=== PATIENT | female | born 1995 | race Caucasian/White ===

== ENCOUNTER → 2017-05-02 11:47 | Outpatient (CLI) | payer OTHER, MEDICAID, SELFPAY ==
[2017-05-02 12:25] LABS: Albumin, Serum 3.1 g/dL (3.2-5.0); BUN 24 mg/dL (7-18); BUN/Creat Ratio 15.2 RATIO (10-20); Calcium,Total 8.9 mg/dL (8.5-10.1); Chloride 114 mmol/L (98-107); Creatinine, Serum 1.58 mg/dL (0.55-1.02); EST Glomerular Filtration Rate 43 mL/min (>60); Est Glom Filt Rate - Afr Amer 53 mL/min (>60); Glucose 79 mg/dL (74-106); Phosphorus 2.4 mg/dL (2.5-4.9); Potassium 4.9 mmol/L (3.5-5.1); Sodium Level 142 mmol/L (136-145)
== END ==
PROVIDERS: Family Provider Family Medicine; PCP Family Medicine; Visit Provider Internal Medicine Nephrology
DX: N28.9 Disorder of kidney and ureter, unspecified (principal)
CPT/HCPCS: 36415; 80069

== ENCOUNTER → 2017-06-03 15:59 | Outpatient (CLI) | payer OTHER, MEDICAID, SELFPAY ==
[2017-06-03 18:08] LABS: Microalbumin:Creatinine Ratio 296.2 mg/g CRE (<30 mg/g CRE); Protein, Urine (Random) 56.5 mg/dL (<11.9); Protein:Creat Ratio 431 mg/g CRE (0-200)
== END ==
PROVIDERS: Family Provider Family Medicine; PCP Family Medicine; Visit Provider Pediatrics Pediatric Nephrology
DX: N18.3 Chronic kidney disease, stage 3 (moderate) (principal)
CPT/HCPCS: 82043; 82570; 84156

== ENCOUNTER → 2017-06-17 10:36 | Outpatient (CLI) | payer OTHER, MEDICAID, SELFPAY ==
[2017-06-17 12:40] LABS: Anion Gap 6 (5-15); BUN 21 mg/dL (7-18); BUN/Creat Ratio 13.8 RATIO (10-20); Calcium,Total 8.9 mg/dL (8.5-10.1); Chloride 111 mmol/L (98-107); Creatinine, Serum 1.52 mg/dL (0.55-1.02); EST Glomerular Filtration Rate 45 mL/min (>60); Est Glom Filt Rate - Afr Amer 55 mL/min (>60); Glucose 63 mg/dL (74-106); Potassium 4.1 mmol/L (3.5-5.1); Sodium Level 143 mmol/L (136-145)
[2017-06-17 12:43] LABS: Absolute Lymphocyte Count 1.83 X10^3/ul (0.83-4.51); Absolute Neutrophil Count 6.6 X10^3/uL (2.0-7.7); Basophil# 0.01 X10^3/uL; Basophil% 0.1 % (0-1); Eosinophil# 0.13 X10^3/uL; Eosinophils% 1.4 % (0-5); Hematocrit 37.3 % (37-47); Hemoglobin 12.5 g/dl (12.0-15.0); Lymphocyte # 1.83 X10^3/ul (4.0); Lymphocyte % 19.7 % (19-41); Mean Corp Hgb Conc 33.5 g/gl (32-36); Mean Corpuscular Hgb 33.3 pg (27.0-32.0); Mean Corpuscular Volume 99.5 fL (81-99); Mean Platelet Vol. 11.8 fl (6.2-12.0); Monocyte# 0.69 X10^3/uL; Monocyte% 7.4 % (0-10); Neutrophil # 6.63 X10^3/uL (2.7-7.7); Neutrophil % 71.3 % (47-70); Platelet Count 225 K/mm3 (150-450); RBC Distribution Width CV 12.3 % (11.6-14.6); RBC Distribution Width SD 43.6 fl (35.1-43.9); Red Blood Count 3.75 M/mm3 (4.2-5.4); White Blood Count 9.3 K/mm3 (4.4-11.0)
[2017-06-17 12:55] LABS: POSITIVE COUNT NO; POSITIVE DIFFERENTIAL NO; POSITIVE MORPHOLOGY NO
== END ==
PROVIDERS: PCP Family Medicine; Visit Provider Family Medicine
DX: I95.9 Hypotension, unspecified (principal)
CPT/HCPCS: 36415; 80048; 85025

== ENCOUNTER → 2017-08-04 15:40 | Outpatient (CLI) | payer OTHER, MEDICAID, SELFPAY ==
[2017-08-04 17:12] LABS: Absolute Lymphocyte Count 2.04 X10^3/ul (0.83-4.51); Absolute Neutrophil Count 4.1 X10^3/uL (2.0-7.7); Basophil# 0.01 X10^3/uL; Basophil% 0.1 % (0-1); Eosinophil# 0.14 X10^3/uL; Eosinophils% 2.1 % (0-5); Hematocrit 36.6 % (37-47); Hemoglobin 12.1 g/dl (12.0-15.0); Lymphocyte # 2.04 X10^3/ul (4.0); Lymphocyte % 30.4 % (19-41); Mean Corp Hgb Conc 33.1 g/gl (32-36); Mean Corpuscular Hgb 32.5 pg (27.0-32.0); Mean Corpuscular Volume 98.4 fL (81-99); Mean Platelet Vol. 11.4 fl (6.2-12.0); Monocyte# 0.41 X10^3/uL; Monocyte% 6.1 % (0-10); Neutrophil # 4.11 X10^3/uL (2.7-7.7); Neutrophil % 61.3 % (47-70); Platelet Count 194 K/mm3 (150-450); RBC Distribution Width CV 12.2 % (11.6-14.6); RBC Distribution Width SD 43.7 fl (35.1-43.9); Red Blood Count 3.72 M/mm3 (4.2-5.4); White Blood Count 6.7 K/mm3 (4.4-11.0)
[2017-08-04 17:14] LABS: POSITIVE COUNT NO; POSITIVE DIFFERENTIAL NO; POSITIVE MORPHOLOGY NO
[2017-08-04 17:53] LABS: Albumin, Serum 3.3 g/dL (3.2-5.0); BUN 20 mg/dL (7-18); BUN/Creat Ratio 13.3 RATIO (10-20); Calcium,Total 8.8 mg/dL (8.5-10.1); Chloride 109 mmol/L (98-107); Cholesterol 116 mg/dL (200); EST Glomerular Filtration Rate 46 mL/min (>60); Est Glom Filt Rate - Afr Amer 56 mL/min (>60); Glucose 64 mg/dL (74-106); High Density Lipoprotein 37 mg/dL; Phosphorus 2.1 mg/dL (2.5-4.9); Potassium 3.8 mmol/L (3.5-5.1); Sodium Level 144 mmol/L (136-145); Triglycerides 226 mg/dL; Very Low Density Lipoprotein 45 mg/dL (5-40)
[2017-08-04 18:19] LABS: Protein, Urine (Random) 86.9 mg/dL (<11.9); Protein:Creat Ratio 499 mg/g CRE (0-200)
[2017-08-05 09:49] LABS: PTHIN 94.1 pg/mL (18.4-80.1)
== END ==
PROVIDERS: Family Provider Family Medicine; PCP Family Medicine; Visit Provider Pediatrics Pediatric Nephrology
DX: N18.3 Chronic kidney disease, stage 3 (moderate) (principal); Z13.0 Encounter for screening for diseases of the blood and blood-forming organs and certain disorders involving the immune mechanism
CPT/HCPCS: 36415; 80061; 80069; 82043; 82306; 82570; 83970; 84156; 85025

== ENCOUNTER → 2017-12-09 08:42 | Outpatient (CLI) | payer OTHER, MEDICAID, SELFPAY ==
[2017-12-09 09:50] LABS: Differential Indicated SCAN CRITERIA MET; Hematocrit 35.6 % (37-47); Hemoglobin 11.9 g/dl (12.0-15.0); Mean Corp Hgb Conc 33.4 g/gl (32-36); Mean Corpuscular Hgb 33.2 pg (27.0-32.0); Mean Corpuscular Volume 99.4 fL (81-99); Mean Platelet Vol. 11.3 fl (6.2-12.0); Neutrophil % 59.1 % (47-70); POSITIVE COUNT YES; POSITIVE DIFFERENTIAL NO; POSITIVE MORPHOLOGY YES; Platelet Count 202 K/mm3 (150-450); RBC Distribution Width CV 12.9 % (11.6-14.6); RBC Distribution Width SD 46.3 fl (35.1-43.9); Red Blood Count 3.58 M/mm3 (4.2-5.4); White Blood Count 5.4 K/mm3 (4.4-11.0)
[2017-12-09 09:51] LABS: Absolute Lymphocyte Count 1.79 X10^3/ul (0.83-4.51); Absolute Neutrophil Count 3.2 X10^3/uL (2.0-7.7); Basophil# 0.01 X10^3/uL; Basophil% 0.2 % (0-1); Eosinophil# 0.11 X10^3/uL; Eosinophils% 2.1 % (0-5); Lymphocyte # 1.79 X10^3/ul (4.0); Lymphocyte % 33.4 % (19-41); Microalbumin:Creatinine Ratio 266.9 mg/g CRE (<30 mg/g CRE); Monocyte# 0.28 X10^3/uL; Monocyte% 5.2 % (0-10); Neutrophil # 3.17 X10^3/uL (2.7-7.7); Protein, Urine (Random) 54.4 mg/dL (<11.9); Protein:Creat Ratio 461 mg/g CRE (0-200)
[2017-12-09 10:08] LABS: Albumin, Serum 3.1 g/dL (3.2-5.0); BUN 23 mg/dL (7-18); BUN/Creat Ratio 13.9 RATIO (10-20); Calcium,Total 8.8 mg/dL (8.5-10.1); Chloride 111 mmol/L (98-107); Creatinine, Serum 1.66 mg/dL (0.55-1.02); EST Glomerular Filtration Rate 41 mL/min (>60); Est Glom Filt Rate - Afr Amer 49 mL/min (>60); Glucose 79 mg/dL (74-106); Phosphorus 2.3 mg/dL (2.5-4.9); Potassium 4.2 mmol/L (3.5-5.1); Sodium Level 142 mmol/L (136-145)
[2017-12-09 10:12] LABS: Vitamin D,25 Hydroxy 33.1 ng/mL (29.95-100.01)
== END ==
PROVIDERS: Family Provider Family Medicine; PCP Family Medicine; Visit Provider Pediatrics Pediatric Nephrology
DX: N18.3 Chronic kidney disease, stage 3 (moderate) (principal); Z13.0 Encounter for screening for diseases of the blood and blood-forming organs and certain disorders involving the immune mechanism
CPT/HCPCS: 36415; 80069; 82043; 82306; 82570; 83970; 84156; 85025

== ENCOUNTER → 2018-03-15 09:21 | Outpatient (CLI) | payer OTHER, MEDICAID, SELFPAY ==
[2018-03-15 11:18] LABS: Anion Gap 8 (5-15); BUN 16 mg/dL (7-18); BUN/Creat Ratio 9.7 RATIO (10-20); Calcium,Total 8.9 mg/dL (8.5-10.1); Chloride 113 mmol/L (98-107); Creatinine, Serum 1.65 mg/dL (0.55-1.02); EST Glomerular Filtration Rate 41 mL/min (>60); Est Glom Filt Rate - Afr Amer 50 mL/min (>60); Glucose 73 mg/dL (74-106); Potassium 4.1 mmol/L (3.5-5.1); Sodium Level 148 mmol/L (136-145); Thyroid Stim Hormone (TSH) 1.31 uIU/mL (0.358-3.74)
== END ==
PROVIDERS: Family Provider Family Medicine; PCP Family Medicine; Visit Provider Family Medicine
DX: N18.3 Chronic kidney disease, stage 3 (moderate) (principal); E03.9 Hypothyroidism, unspecified
CPT/HCPCS: 36415; 80048; 84443

== ENCOUNTER 2018-05-03 12:32 | Emergency (ER) | payer OTHER, MEDICAID, SELFPAY ==
[2018-05-03 12:33] VITALS: BP 130/92; PULSE 103; RESP 16; TEMP 36.1; O2SAT 100; BMI 39.2
--- NOTE | 2018-05-03 12:58 | ED.VISSUMM ---
- ER Visit Summary Date of Service: 05/03/18 Chief Complaint: Fall with left lower extremity pain History of Present Illness: The patient is a 23 F history of cerebral palsy, renal insufficiency and hypothyroidism. The parents the child was acting up yesterday and fell to the floor. Initially ambulated the couch. But since that time is complaining of left lower leg pain and limping. Mom believes it to be a knee injury. No other injuries. No head injury. No LOC. Physical Examination: Young female. No acute distress. She is a limited informant. Sitting in a wheelchair. Vital signs are stable. She is afebrile. No distress. HEENT exam atraumatic. Pupils round reactive light. No signs of trauma to the face or scalp. C-spine nontender. Trachea midline. Lungs clear to auscultation bilaterally. Heart regular rhythm no murmur. Abdomen is soft and nontender. Patient is moving all 4 extremities. They are neurovascularly intact. There is no deformity. She has mild pain on palpation to her left knee. There is no gross bony deformity. No effusion. She is able to flex and extend at the knee. Left hip thigh lower leg ankle and foot currently appear nontender with no deformity. Neurologically she is awake and alert. Following limited commands. Test Results: Left knee x-ray 3 views read by myself shows no acute abnormality. No fracture or dislocation. No effusion. The x-rays with the parents. Emergency Department Course and Treatment: Repeat exam patient is doing well at 1330. Her pants are now off her hip is nontender as is her femur. She has mild tenderness to the left knee. But has normal range of motion. There is no effusion. The MCL and LCL appear to be intact as do the PCL and LCL. Left lower leg, ankle and foot are nontender neurovascular intact with no deformity and no swelling. Normal DP pulse. No signs of trauma. Treatment Plan: Ice to the knee. Tylenol and Motrin for pain. Follow-up if not improving. Disposition: Discharge Impression: Acute left knee sprain This note was generated with [employer] software. It may contain incorrect words, spelling, and punctuation that were not noted in review of the chart prior to signing ED Disposition - Plan for ED Patient: Referrals: Lito Rutherford MD [Primary Care Provider] -
--- NOTE | 2018-05-03 13:05 | RAD_ITS ---
STUDY: X-RAY - LEFT KNEE REASON FOR EXAM: Female, 23 years old. Pain following a fall. Unable to bear weight. TECHNIQUE: 3 view(s) of the knee. COMPARISON: None. FINDINGS: Normal visualized distal femur. Normal visualized proximal tibia and fibula. Normal proximal tibiofibular articulation. Normal medial femorotibial compartment. Normal lateral femorotibial compartment. Normal patellofemoral articulation. The soft tissue structures are unremarkable. RAD/Knee 3 Views IMPRESSION: Normal x-ray examination of the knee. Electronically Signed: Oleg Jimenes MD at 13:36 EST , Service support ,
--- NOTE | 2018-05-03 13:36 | ED.DEP ---
ED Disposition - Plan for ED Patient: Disposition: Home or Assisted Living Instructions: ED Sprain Knee Referrals: Lito Rutherford MD [Primary Care Provider] - 1 Week if not improving Additional Instructions: Ice to the left knee. Tylenol and Motrin for pain. Follow-up with not improving.
== END 2018-05-03 14:00 | disposition home or self-care (01) ==
PROVIDERS: Emergency Provider Emergency Medicine; Family Provider Family Medicine; PCP Family Medicine
DX: S83.92XA Sprain of unspecified site of left knee, initial encounter (principal); W19.XXXA Unspecified fall, initial encounter; Y93.9 Activity, unspecified; Y92.9 Unspecified place or not applicable; G80.9 Cerebral palsy, unspecified; N28.9 Disorder of kidney and ureter, unspecified; E03.9 Hypothyroidism, unspecified
CPT/HCPCS: 73562; 99282

== ENCOUNTER → 2018-06-03 11:58 | Outpatient (CLI) | payer OTHER, MEDICAID, SELFPAY ==
[2018-06-03 13:10] LABS: Albumin, Serum 3.3 g/dL (3.2-5.0); BUN 20 mg/dL (7-18); BUN/Creat Ratio 11.9 RATIO (10-20); Calcium,Total 8.9 mg/dL (8.5-10.1); Chloride 111 mmol/L (98-107); Creatinine, Serum 1.68 mg/dL (0.55-1.02); EST Glomerular Filtration Rate 40 mL/min (>60); Est Glom Filt Rate - Afr Amer 48 mL/min (>60); Glucose 92 mg/dL (74-106); Phosphorus 1.4 mg/dL (2.5-4.9); Potassium 3.7 mmol/L (3.5-5.1); Sodium Level 143 mmol/L (136-145)
[2018-06-03 13:41] LABS: Microalbumin:Creatinine Ratio 394.2 mg/g CRE (<30 mg/g CRE); Protein, Urine (Random) 79.7 mg/dL (<11.9); Protein:Creat Ratio 582 mg/g CRE (0-200)
== END ==
PROVIDERS: Family Provider Family Medicine; PCP Family Medicine; Referring Provider Pediatrics Pediatric Nephrology; Visit Provider Pediatrics Pediatric Nephrology
DX: N18.3 Chronic kidney disease, stage 3 (moderate) (principal)
CPT/HCPCS: 36415; 80069; 82043; 82570; 84156

== ENCOUNTER → 2018-10-04 | Outpatient (CLI) | payer OTHER, MEDICAID, SELFPAY ==
[2018-10-04 12:50] LABS: Anion Gap 7 (5-15); BUN 21 mg/dL (7-18); BUN/Creat Ratio 12.6 RATIO (10-20); Calcium,Total 9.2 mg/dL (8.5-10.1); Chloride 112 mmol/L (98-107); Creatinine, Serum 1.67 mg/dL (0.55-1.02); EST Glomerular Filtration Rate 40 mL/min (>60); Est Glom Filt Rate - Afr Amer 49 mL/min (>60); Free T3 2.3 pg/mL (2.18-3.98); Glucose 70 mg/dL (74-106); Potassium 4.3 mmol/L (3.5-5.1); Sodium Level 145 mmol/L (136-145); T4 Total, Thyroxin 8.8 ug/dL (4.8-13.9); Thyroid Stim Hormone (TSH) 1.19 uIU/mL (0.358-3.74)
== END | disposition home or self-care (01) ==
LOC: MFPLAB 10:39
PROVIDERS: Family Provider Family Medicine; PCP Family Medicine; Visit Provider Family Medicine
DX: N18.3 Chronic kidney disease, stage 3 (moderate) (principal); E03.9 Hypothyroidism, unspecified
CPT/HCPCS: 36415; 80048; 84436; 84443; 84481

== ENCOUNTER → 2019-01-13 12:06 | Outpatient (CLI) | payer OTHER, MEDICAID, SELFPAY ==
[2019-01-13 15:06] LABS: Anion Gap 5 (5-15); BUN 20 mg/dL (7-18); BUN/Creat Ratio 12.2 RATIO (10-20); Calcium,Total 9.3 mg/dL (8.5-10.1); Chloride 109 mmol/L (98-107); Cholesterol 134 mg/dL (200); Creatinine, Serum 1.64 mg/dL (0.55-1.02); EST Glomerular Filtration Rate 41 mL/min (>60); Est Glom Filt Rate - Afr Amer 50 mL/min (>60); Glucose 73 mg/dL (74-106); High Density Lipoprotein 47 mg/dL; Potassium 4.1 mmol/L (3.5-5.1); Sodium Level 142 mmol/L (136-145); Thyroid Stim Hormone (TSH) 0.69 uIU/mL (0.358-3.74); Triglycerides 117 mg/dL; Very Low Density Lipoprotein 23 mg/dL (5-40)
== END ==
PROVIDERS: Family Provider Family Medicine; PCP Family Medicine; Referring Provider Family Medicine; Visit Provider Family Medicine
DX: N18.3 Chronic kidney disease, stage 3 (moderate) (principal); E03.9 Hypothyroidism, unspecified
CPT/HCPCS: 36415; 80048; 80061; 84443

== ENCOUNTER → 2019-05-31 17:08 | Outpatient (CLI) | payer OTHER, MEDICAID, SELFPAY ==
[2019-05-31 18:02] LABS: Albumin, Serum 3.1 g/dL (3.2-5.0); BUN 15 mg/dL (7-18); BUN/Creat Ratio 9.7 RATIO (10-20); Calcium,Total 8.8 mg/dL (8.5-10.1); Chloride 114 mmol/L (98-107); Creatinine, Serum 1.54 mg/dL (0.55-1.02); EST Glomerular Filtration Rate 44 mL/min (>60); Est Glom Filt Rate - Afr Amer 53 mL/min (>60); Glucose 86 mg/dL (74-106); Phosphorus 1.5 mg/dL (2.5-4.9); Potassium 4.2 mmol/L (3.5-5.1); Sodium Level 143 mmol/L (136-145)
[2019-05-31 18:29] LABS: Microalbumin:Creatinine Ratio 365.6 mg/g CRE (<30 mg/g CRE); Protein:Creat Ratio 497 mg/g CRE (0-200)
== END ==
PROVIDERS: PCP Family Medicine; Referring Provider Pediatrics Pediatric Nephrology; Visit Provider Pediatrics Pediatric Nephrology
DX: N18.3 Chronic kidney disease, stage 3 (moderate) (principal)
CPT/HCPCS: 36415; 80069; 82043; 82570; 84156

== ENCOUNTER → 2019-10-06 10:21 | Outpatient (CLI) | payer OTHER, MEDICAID, SELFPAY ==
[2019-10-06 13:05] LABS: Absolute Lymphocyte Count 1.74 X10^3/uL (0.83-4.51); Absolute Neutrophil Count 3.8 X10^3/uL (2.0-7.7); Basophil# 0.01 X10^3/uL; Basophil% 0.2 % (0-1); Eosinophil# 0.14 X10^3/uL; Eosinophils% 2.3 % (0-5); Hematocrit 38.5 % (37-47); Hemoglobin 12.4 g/dL (12.0-15.0); Lymphocyte # 1.74 X10^3/ul (4.0); Lymphocyte % 28.2 % (19-41); Mean Corp Hgb Conc 32.2 g/dL (32-36); Mean Corpuscular Hgb 32.9 pg (27.0-32.0); Mean Corpuscular Volume 102.1 fL (81-99); Monocyte# 0.52 X10^3/uL; Monocyte% 8.4 % (0-10); NRBC Flagged by Analyzer 0 % (0-5); Neutrophil # 3.76 X10^3/uL (2.7-7.7); Neutrophil % 60.7 % (47-70); Platelet Count 211 K/mm3 (150-450); RBC Distribution Width CV 12.6 % (11.6-14.6); RBC Distribution Width SD 47.1 fl (35.1-43.9); Red Blood Count 3.77 M/mm3 (4.2-5.4); T3 Total - Triiodothyronine 1.09 ng/mL (0.6-1.81); Vitamin D,25 Hydroxy 45.4 ng/mL; White Blood Count 6.2 K/mm3 (4.4-11.0)
[2019-10-06 13:22] LABS: Cholesterol 141 mg/dL (200); High Density Lipoprotein 36 mg/dL; T4 Total, Thyroxin 10.7 ug/dL (4.8-13.9); Triglycerides 151 mg/dL; Very Low Density Lipoprotein 30 mg/dL (5-40)
== END ==
PROVIDERS: PCP Family Medicine; Visit Provider Family Medicine
DX: Z00.00 Encounter for general adult medical examination without abnormal findings (principal); E03.9 Hypothyroidism, unspecified; K92.1 Melena
CPT/HCPCS: 36415; 80061; 82306; 84436; 84443; 84480; 85025

== ENCOUNTER → 2020-05-28 08:44 | Outpatient (CLI) | payer OTHER, MEDICAID, SELFPAY ==
[2020-05-28 09:43] LABS: Albumin, Serum 3.1 g/dL (3.2-5.0); BUN 22 mg/dL (7-18); BUN/Creat Ratio 13.8 RATIO (10-20); Chloride 112 mmol/L (98-107); EST Glomerular Filtration Rate 42 mL/min (>60); Est Glom Filt Rate - Afr Amer 50 mL/min (>60); Glucose 89 mg/dL (74-106); Potassium 4.3 mmol/L (3.5-5.1); Sodium Level 143 mmol/L (136-145)
[2020-05-28 10:08] LABS: Microalbumin:Creatinine Ratio 251.4 mg/g CRE (<30 mg/g CRE); Protein, Urine (Random) 58.3 mg/dL (<11.9); Protein:Creat Ratio 411 mg/g CRE (0-200)
== END ==
PROVIDERS: PCP Family Medicine; Referring Provider Pediatrics Pediatric Nephrology; Visit Provider Pediatrics Pediatric Nephrology
DX: N18.30 Chronic kidney disease, stage 3 unspecified (principal)
CPT/HCPCS: 36415; 80069; 82043; 82570; 84156

== ENCOUNTER → 2020-10-10 10:20 | Outpatient (CLI) | payer OTHER, MEDICAID, SELFPAY ==
[2020-10-10 12:41] LABS: Vitamin D,25 Hydroxy 41.6 ng/mL
[2020-10-10 12:48] LABS: Anion Gap 4 (5-15); BUN 20 mg/dL (7-18); Calcium,Total 9.1 mg/dL (8.5-10.1); Chloride 110 mmol/L (98-107); Cholesterol 141 mg/dL (200); Creatinine, Serum 1.54 mg/dL (0.55-1.02); EST Glomerular Filtration Rate 43 mL/min (>60); Est Glom Filt Rate - Afr Amer 53 mL/min (>60); Free T3 2.2 pg/mL (2.18-3.98); Glucose 72 mg/dL (74-106); High Density Lipoprotein 43 mg/dL; Sodium Level 141 mmol/L (136-145); T4 Free Direct 1.02 ng/dL (0.76-1.46); Thyroid Stim Hormone (TSH) 1.64 uIU/mL (0.358-3.74); Triglycerides 111 mg/dL; Very Low Density Lipoprotein 22 mg/dL (5-40)
== END ==
PROVIDERS: PCP Family Medicine; Visit Provider Family Medicine
DX: Z00.00 Encounter for general adult medical examination without abnormal findings (principal); E03.9 Hypothyroidism, unspecified
CPT/HCPCS: 36415; 80048; 80061; 82306; 84439; 84443; 84481

== ENCOUNTER → 2021-01-22 17:17 | Outpatient (CLI) | payer OTHER, MEDICAID, SELFPAY ==
[2021-01-22 17:43] LABS: Hematocrit 37.6 % (37-47); Hemoglobin 12.2 g/dL (12.0-15.0); Mean Corp Hgb Conc 32.4 g/dL (32-36); Mean Corpuscular Hgb 32.4 pg (27.0-32.0); Mean Corpuscular Volume 99.7 fL (81-99); Mean Platelet Vol. 11.2 fl (6.2-12.0); Platelet Count 239 K/mm3 (150-450); RBC Distribution Width CV 11.9 % (11.6-14.6); RBC Distribution Width SD 43.8 fl (35.1-43.9); Red Blood Count 3.77 M/mm3 (4.2-5.4); White Blood Count 8.1 K/mm3 (4.4-11.0)
[2021-01-22 18:27] LABS: Albumin, Serum 2.9 g/dL (3.2-5.0); BUN 16 mg/dL (7-18); BUN/Creat Ratio 10.7 RATIO (10-20); Calcium,Total 8.9 mg/dL (8.5-10.1); Chloride 109 mmol/L (98-107); EST Glomerular Filtration Rate 45 mL/min (>60); Est Glom Filt Rate - Afr Amer 54 mL/min (>60); Glucose 80 mg/dL (74-106); Phosphorus 2.1 mg/dL (2.5-4.9); Potassium 3.9 mmol/L (3.5-5.1); Sodium Level 140 mmol/L (136-145)
[2021-01-22 19:43] LABS: Microalbumin:Creatinine Ratio 226.5 mg/g CRE (<30 mg/g CRE); Protein, Urine (Random) 51.3 mg/dL (<11.9); Protein:Creat Ratio 389 mg/g CRE (0-200)
[2021-01-23 08:24] LABS: PTHIN 71.4 pg/mL (18.4-80.1)
== END ==
PROVIDERS: PCP Family Medicine; Visit Provider Pediatrics Pediatric Nephrology
DX: N18.32 Chronic kidney disease, stage 3b (principal); N25.81 Secondary hyperparathyroidism of renal origin
CPT/HCPCS: 36415; 80069; 82043; 82306; 82570; 83970; 84156; 85027

== ENCOUNTER 2021-04-20 10:45 | Emergency (ER) | payer OTHER, MEDICAID, SELFPAY ==
--- NOTE | 2021-04-20 11:30 | RAD_ITS ---
STUDY: X-RAY - LEFT KNEE REASON FOR EXAM: Female, 26 years old. pain. nki? hx prev. arthroscopic sx. pt appears T/B mentally challenged. LTD ROM/EXAM TECHNIQUE: 3 view(s) of the knee. COMPARISON: May [id number] left knee x-ray FINDINGS: Normal visualized distal femur. Normal visualized proximal tibia and fibula. Normal proximal tibiofibular articulation. Mild narrowing medial femorotibial compartment. Normal lateral femorotibial compartment. There is mild degenerative arthrosis of the patellofemoral articulation. The soft tissue structures are unremarkable. RAD/Knee 3 Views IMPRESSION: Mild degenerative change. No visualized acute fracture. No visualized joint effusion. Electronically Signed: Carrie Baldwin MD at 12:01 EST Reading Location ID and State: [facility] / [place] Tel , Service support ,
--- NOTE | 2021-04-20 13:08 | EDS_ITS ---
DATE OF SERVICE 04/20/21 CHIEF COMPLAINT: Left knee pain. HISTORY OF PRESENT ILLNESS: This patient is a 26-year-old female who presents with left knee pain that began last night. The patient was sitting at the dinner table. When she got up she started to have pain in her left knee. The patient states that it began rather suddenly. The patient states that it has been constant. Mother states that it appears to be worse with ambulation and better with rest. Mother states that the patient has a history of partial ACL tear in her left knee. The patient has seen Dr. Salguero for this in the past. The patient denies any paresthesias or weakness. The patient denies any falls or direct trauma. PAST MEDICAL HISTORY: Chronic kidney disease, cerebral palsy and hypothyroidism. PAST SURGICAL HISTORY: Tympanostomy tubes, left knee arthroscopy and tonsillectomy and adenoidectomy. CURRENT MEDICATIONS: Lisinopril and fish oil. ALLERGIES: No known drug allergies. SOCIAL HISTORY: The patient denies any smoking, alcohol or drug use. REVIEW OF SYSTEMS: GENERAL: The patient denies any fever or chills. VISION: The patient denies any blurry vision or double vision. ENT: The patient denies any sore throat or rhinorrhea. CARDIOVASCULAR: The patient denies any chest pain or palpitations. RESPIRATORY: The patient denies any shortness of breath or cough. GI: The patient denies any nausea or vomiting. : The patient denies any dysuria or hematuria. MUSCULOSKELETAL: The patient denies any neck pain or back pain. SKIN: The patient denies any rash or abscess. NEUROLOGIC: The patient denies any paresthesias or weakness. ALLERGIES: The patient denies hives or swelling. PHYSICAL EXAMINATION: GENERAL: The patient is in no acute distress. VITAL SIGNS: Stable, afebrile. EXTREMITIES: Limited range of motion of the left knee. There is some guarding noted on exam. There is no laxity appreciated. Braeden's test is negative. Varus and valgus stress test were negative. Posterior tibial pulses are equal bilaterally. NEUROLOGIC: Sensation intact bilaterally in lower extremities. Strength is 5/5 bilaterally in the lower extremities. DIAGNOSTIC DATA: X-rays left knee, 4 views, on my interpretation, there is no acute fracture or dislocation. There is no joint effusion noted. This is also interpreted by the radiologist and he agrees. EMERGENCY DEPARTMENT COURSE AND MEDICAL DECISION MAKING: The patient was given a dose of Clayton here. The patient is feeling better on reevaluation. IMPRESSION: Left knee sprain. PLAN: The patient was given a prescription for a short course of Clayton. The patient was instructed to ice and elevate the left knee. The patient was instructed to follow up with her primary care physician and Dr. Salguero in 3-5 days. Patient and mother understood and were agreeable with plan. All questions were answered. The patient was discharged in satisfactory condition.
== END 2021-04-20 13:30 | disposition home or self-care (01) ==
LOC: ED 04-22 14:08
PROVIDERS: Emergency Provider Emergency Medicine; PCP Family Medicine; Visit Provider Emergency Medicine
DX: S83.92XA Sprain of unspecified site of left knee, initial encounter (principal); G80.9 Cerebral palsy, unspecified; X58.XXXA Exposure to other specified factors, initial encounter; E03.9 Hypothyroidism, unspecified; N18.9 Chronic kidney disease, unspecified; Z79.899 Other long term (current) drug therapy; Z79.890 Hormone replacement therapy
CPT/HCPCS: 73562; 99284

== ENCOUNTER → 2021-08-26 | Outpatient (CLI) | payer OTHER, MEDICAID, SELFPAY ==
[2021-08-26 11:26] LABS: Hematocrit 37.8 % (37-47); Hemoglobin 12.5 g/dL (12.0-15.0); Mean Corp Hgb Conc 33.1 g/dL (32-36); Mean Corpuscular Hgb 32.8 pg (27.0-32.0); Mean Corpuscular Volume 99.2 fL (81-99); Mean Platelet Vol. 11.1 fl (6.2-12.0); Platelet Count 225 K/mm3 (150-450); RBC Distribution Width CV 12.2 % (11.6-14.6); RBC Distribution Width SD 44.4 fl (35.1-43.9); Red Blood Count 3.81 M/mm3 (4.2-5.4); White Blood Count 8.2 K/mm3 (4.4-11.0)
[2021-08-26 11:44] LABS: Microalbumin:Creatinine Ratio 312.9 mg/g CRE (<30 mg/g CRE); Protein, Urine (Random) 49.8 mg/dL (<11.9); Protein:Creat Ratio 493 mg/g CRE (0-200)
[2021-08-26 11:50] LABS: PTHIN 56.7 pg/mL (18.4-80.1)
[2021-08-26 11:51] LABS: Albumin, Serum 3.1 g/dL (3.2-5.0); BUN 23 mg/dL (7-18); BUN/Creat Ratio 14.8 RATIO (10-20); Chloride 112 mmol/L (98-107); Creatinine, Serum 1.55 mg/dL (0.55-1.02); EST Glomerular Filtration Rate 43 mL/min (>60); Est Glom Filt Rate - Afr Amer 52 mL/min (>60); Glucose 82 mg/dL (74-106); Phosphorus 1.6 mg/dL (2.5-4.9); Sodium Level 141 mmol/L (136-145)
[2021-08-26 11:53] LABS: Vitamin D,25 Hydroxy 30.1 ng/mL
== END | disposition home or self-care (01) ==
LOC: LAB 10:52
PROVIDERS: PCP Family Medicine; Referring Provider Pediatrics Pediatric Nephrology; Visit Provider Pediatrics Pediatric Nephrology
DX: N18.32 Chronic kidney disease, stage 3b (principal); N25.81 Secondary hyperparathyroidism of renal origin; N05.1 Unspecified nephritic syndrome with focal and segmental glomerular lesions
CPT/HCPCS: 36415; 80069; 82043; 82306; 82570; 83970; 84156; 85027

== ENCOUNTER → 2021-10-14 | Outpatient (CLI) | payer OTHER, MEDICAID, SELFPAY ==
[2021-10-14 12:58] LABS: Cholesterol 127 mg/dL (200); High Density Lipoprotein 38 mg/dL; T4 Free Direct 1.04 ng/dL (0.76-1.46); Thyroid Stim Hormone (TSH) 1.75 uIU/mL (0.358-3.74); Triglycerides 117 mg/dL; Very Low Density Lipoprotein 23 mg/dL (5-40)
== END | disposition home or self-care (01) ==
LOC: MFPLAB 11:22
PROVIDERS: PCP Family Medicine; Referring Provider Family Medicine; Visit Provider Family Medicine
DX: Z00.00 Encounter for general adult medical examination without abnormal findings (principal); E03.9 Hypothyroidism, unspecified
CPT/HCPCS: 36415; 80061; 84439; 84443; 84481

== ENCOUNTER → 2022-05-01 | Outpatient (CLI) | payer OTHER, MEDICAID, SELFPAY ==
--- NOTE | 2022-04-30 15:20 | LES_PTH ---
PATIENT: NICHOLAS BALDERAS LOC: [facility] U#:[id number] AGE/SX: 27/F ROOM: RE05/01/[address]: Dr. Kendell Taylor MD : 1995 BED: DIS: 05/01/2022 SPEC #: [id number] RECD: 05/01/22 07:13 STATUS: FRANKLIN CHANG #: [id number] MARQUITA: 04/30/22 15:[address]: Kendell Taylor DEPT: SURGICAL PATHOLOGY RECD BY: Leslie Dooley ENTERED: 05/01/22 09:58 SP TYPE: Lesion OTHR DR: Dr. Lito Rutherford MD Tissues: Skin of arm Procedures: Surgery Specimen Level IV HEADER OPERATION: Excision of left upper arm mass PRE-OP DIAGNOSIS: Left upper arm mass TISSUE SUBMITTED: Left upper arm mass MICROSCOPIC DIAGNOSIS Left upper arm mass, excision: Skin with underlying tissue with acute and chronic inflammation, histiocytic reaction, and foreign body giant cell reaction in the underlying tissue. See comment. MJ:tiburcio 05/02/2022 COMMENT The findings may represent inflamed and ruptured epidermal inclusion cyst. Clinical correlation and appropriate follow up are necessary. MICROSCOPIC DESCRIPTION Slides are reviewed. GROSS DESCRIPTION Received in fixative is one container labeled with the patient's name and designated left upper arm mass. The specimen consists of a piece of virk-white skin ellipse measuring 1.3 x 0.5 cm and up to 0.5 cm in thickness. The specimen is inked, serially sectioned and submitted entirely in one cassette. / MJ:tiburcio 05/01/2022 TC:5 CPT: 59290
== END | disposition home or self-care (01) ==
LOC: LABSPEC 07:45
PROVIDERS: PCP Family Medicine; Visit Provider Surgery
DX: R22.32 Localized swelling, mass and lump, left upper limb (principal)
CPT/HCPCS: 88305

== ENCOUNTER → 2022-05-15 | Outpatient (CLI) | payer OTHER, MEDICAID, SELFPAY ==
[2022-05-15 15:16] LABS: Hematocrit 39.6 % (37-47); Hemoglobin 12.8 g/dL (12.0-15.0); Mean Corp Hgb Conc 32.3 g/dL (32-36); Mean Corpuscular Hgb 32.2 pg (27.0-32.0); Mean Corpuscular Volume 99.7 fL (81-99); Platelet Count 239 K/mm3 (150-450); RBC Distribution Width CV 12.3 % (11.6-14.6); RBC Distribution Width SD 44.9 fl (35.1-43.9); Red Blood Count 3.97 M/mm3 (4.2-5.4); White Blood Count 6.2 K/mm3 (4.4-11.0)
[2022-05-15 15:36] LABS: Albumin, Serum 3.2 g/dL (3.2-5.0); BUN 17 mg/dL (7-18); BUN/Creat Ratio 11.8 RATIO (10-20); Calcium,Total 9.2 mg/dL (8.5-10.1); Chloride 112 mmol/L (98-107); Creatinine, Serum 1.44 mg/dL (0.55-1.02); EST Glomerular Filtration Rate 46 mL/min (>60); Est Glom Filt Rate - Afr Amer 56 mL/min (>60); Glucose 75 mg/dL (74-106); Phosphorus 1.7 mg/dL (2.5-4.9); Potassium 3.7 mmol/L (3.5-5.1); Sodium Level 143 mmol/L (136-145)
[2022-05-15 15:43] LABS: Vitamin D,25 Hydroxy 28.3 ng/mL
[2022-05-15 16:01] LABS: Microalbumin:Creatinine Ratio 392.5 mg/g CRE (<30 mg/g CRE); Protein, Urine (Random) 75.5 mg/dL (<11.9); Protein:Creat Ratio 517 mg/g CRE (0-200)
[2022-05-16 08:15] LABS: PTHIN 67.9 pg/mL (18.4-80.1)
== END | disposition home or self-care (01) ==
LOC: LAB 14:25
PROVIDERS: PCP Family Medicine; Visit Provider Pediatrics Pediatric Nephrology
DX: N18.32 Chronic kidney disease, stage 3b (principal); N25.81 Secondary hyperparathyroidism of renal origin; N05.1 Unspecified nephritic syndrome with focal and segmental glomerular lesions
CPT/HCPCS: 36415; 80069; 82043; 82306; 82570; 83970; 84156; 85027

== ENCOUNTER → 2023-03-24 | Outpatient (CLI) | payer MEDICAID, SELFPAY ==
[2023-03-24 12:39] LABS: Hemoglobin 13.4 g/dL (12.0-15.0); Mean Corp Hgb Conc 33.5 g/dL (32-36); Mean Corpuscular Hgb 32.8 pg (27.0-32.0); Mean Corpuscular Volume 97.8 fL (81-99); Mean Platelet Vol. 12.2 fl (6.2-12.0); Platelet Count 203 K/mm3 (150-450); RBC Distribution Width CV 12.7 % (11.6-14.6); RBC Distribution Width SD 45.7 fl (35.1-43.9); Red Blood Count 4.09 M/mm3 (4.2-5.4); White Blood Count 6.1 K/mm3 (4.4-11.0)
[2023-03-24 13:05] LABS: PTHIN 69.5 pg/mL (18.4-80.1)
[2023-03-24 13:08] LABS: Vitamin D,25 Hydroxy 38.3 ng/mL
[2023-03-24 13:14] LABS: Albumin, Serum 3.3 g/dL (3.2-5.0); BUN 18 mg/dL (7-18); BUN/Creat Ratio 11.2 RATIO (10-20); Chloride 113 mmol/L (98-107); EST Glomerular Filtration Rate 41 mL/min (>60); Est Glom Filt Rate - Afr Amer 49 mL/min (>60); Glucose 79 mg/dL (74-106); Phosphorus 1.5 mg/dL (2.5-4.9); Sodium Level 144 mmol/L (136-145)
[2023-03-24 13:44] LABS: Microalbumin:Creatinine Ratio 300.6 mg/g CRE (<30 mg/g CRE); Protein, Urine (Random) 68.2 mg/dL (<11.9); Protein:Creat Ratio 421 mg/g CRE (0-200)
== END | disposition home or self-care (01) ==
LOC: LAB 11:27
PROVIDERS: PCP Family Medicine; Referring Provider Pediatrics Pediatric Nephrology; Visit Provider Pediatrics Pediatric Nephrology
DX: N18.32 Chronic kidney disease, stage 3b (principal)
CPT/HCPCS: 36415; 80069; 82043; 82306; 82570; 83970; 84156; 85027

== ENCOUNTER → 2023-10-26 | Outpatient (CLI) | payer MEDICAID, SELFPAY ==
[2023-10-26 16:02] LABS: ALB/GLOB Ratio 0.8 RATIO (0.9-2.4); AST(SGOT) 19 U/L (15-37); Alanine Aminotransfer ALT/SGPT 19 U/L (13-56); Albumin, Serum 3.2 g/dL (3.2-5.0); Alkaline Phosphatase 72 U/L (45-117); Anion Gap 4 (5-15); BUN 25 mg/dL (7-18); BUN/Creat Ratio 15.4 RATIO (10-20); Calcium,Total 9.3 mg/dL (8.5-10.1); Chloride 113 mmol/L (98-107); Cholesterol 120 mg/dL (200); Creatinine, Serum 1.62 mg/dL (0.55-1.02); EST Glomerular Filtration Rate 40 mL/min (>60); Est Glom Filt Rate - Afr Amer 48 mL/min (>60); Globulin 4.2 g/dL (2.2-4.2); Glucose 77 mg/dL (74-106); High Density Lipoprotein 38 mg/dL; Potassium 4.3 mmol/L (3.5-5.1); Protein, Total 7.4 g/dL (6.4-8.2); Sodium Level 140 mmol/L (136-145); T4 Free Direct 1.02 ng/dL (0.76-1.46); Thyroid Stim Hormone (TSH) 0.71 uIU/mL (0.358-3.74); Triglycerides 100 mg/dL; Very Low Density Lipoprotein 20 mg/dL (5-40)
== END | disposition home or self-care (01) ==
LOC: MFPLAB 11:37
PROVIDERS: PCP Family Medicine; Visit Provider Family Medicine
DX: Z00.00 Encounter for general adult medical examination without abnormal findings (principal); E03.9 Hypothyroidism, unspecified
CPT/HCPCS: 36415; 80053; 80061; 84439; 84443; 84481

== ENCOUNTER → 2024-04-04 | Outpatient (CLI) | payer MEDICAID, SELFPAY ==
[2024-04-04 12:18] LABS: Hematocrit 37.1 % (37-47); Hemoglobin 12.5 g/dL (12.0-15.0); Mean Corp Hgb Conc 33.7 g/dL (32-36); Mean Corpuscular Hgb 32.6 pg (27.0-32.0); Mean Corpuscular Volume 96.6 fL (81-99); Mean Platelet Vol. 11.6 fl (6.2-12.0); Platelet Count 209 K/mm3 (150-450); RBC Distribution Width CV 12.3 % (11.6-14.6); RBC Distribution Width SD 43.7 fl (35.1-43.9); Red Blood Count 3.84 M/mm3 (4.2-5.4); White Blood Count 6.3 K/mm3 (4.4-11.0)
[2024-04-04 12:34] LABS: PTHIN 56.8 pg/mL (18.4-80.1)
[2024-04-04 13:09] LABS: Albumin, Serum 3.1 g/dL (3.2-5.0); BUN 20 mg/dL (7-18); BUN/Creat Ratio 12.6 RATIO (10-20); Calcium,Total 9.6 mg/dL (8.5-10.1); Chloride 113 mmol/L (98-107); Creatinine, Serum 1.59 mg/dL (0.55-1.02); EST Glomerular Filtration Rate 41 mL/min (>60); Est Glom Filt Rate - Afr Amer 49 mL/min (>60); Glucose 80 mg/dL (74-106); Phosphorus 2.1 mg/dL (2.5-4.9); Potassium 4.2 mmol/L (3.5-5.1); Sodium Level 141 mmol/L (136-145)
[2024-04-04 13:26] LABS: Microalbumin:Creatinine Ratio 182.1 mg/g CRE (<30 mg/g CRE); Protein, Urine (Random) 48.1 mg/dL (<11.9); Protein:Creat Ratio 344 mg/g CRE (0-200)
[2024-04-04 14:40] LABS: Vitamin D,25 Hydroxy 29.8 ng/mL
== END | disposition home or self-care (01) ==
LOC: MFPLAB 10:51
PROVIDERS: PCP Family Medicine; Visit Provider Pediatrics Pediatric Nephrology
DX: N18.32 Chronic kidney disease, stage 3b (principal)
CPT/HCPCS: 36415; 80069; 82043; 82306; 82570; 83970; 84156; 85027